=== PATIENT | female | born 1930 | race Caucasian/White ===

== ENCOUNTER → 2016-03-20 | Outpatient (CLI) | payer OTHER ==
[~2016-03-20] MED LIST: APIX1TAB3 PO; BUDE0.09 PO; CALC500C70 PO; ELQ25 PO; ESCI1TAB6 PO; FERR1TAB61 PO; FRS/40 PO; HYDR-5688 PO; LEVO75TA5 PO; LEVO88TA3 PO; LNX125 PO; LVQ750 PO; METO100T44 PO; METO50TA7 PO; OMEP20CA9 PO; ONDA4TAB46 PO; POTA-327 PO; POTA10CA28 PO
--- NOTE | 2016-03-20 15:46 | DIAGNOSTIC IMAGING REPORT ---
CHEST 2 VIEWS ROUTINE CLINICAL HISTORY: I48.0 Paroxysmal atrial [id number] Shortness of breathI5 COMPARISON STUDY: 03/14/2016 FINDINGS: The heart remains enlarged. There are suspected anterolateral dilatation of the descending thoracic aorta. There is resolving congestive failure. There are small residual pleural effusions. There is dense calcification mitral valve annulus. There are improving left basilar airspace opacities. There is been resolution of the right basilar airspace opacities. IMPRESSION: 1. Cardiomegaly 2. Resolving congestive failure with residual small pleural effusions 3. 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 Resolution of the previous described right basilar airspace opacities. Improving left basilar airspace opacities. Electronically signed by: Shiv Hickman M.D. 03/20/2016 3:44 PM
[2016-03-20 15:54] LABS: URINE APPEARANCE CLEAR (CLEAR); URINE BILIRUBIN NEG (NEG); URINE COLOR YELLOW; URINE EPITHELIAL CELL AUTO 0-5 /lpf (0-5); URINE NITRITE NEG (NEG); URINE PH 7.5 (4.5-7.5); URINE SPECIFIC GRAVITY 1.003 (1.000-1.030); UROBILINOGEN NEG (NEG); ZZUR CULT IF INDIC CLEAN CATCH NO
[2016-03-20 15:55] LABS: MANUAL MICROSCOPIC REQUIRED? NO; REVIEW REQ? NO
== END | disposition home or self-care (01) ==
LOC: C.RAD 14:55
PROVIDERS: ATTEND Internal Medicine Pulmonary Disease
DX: I48.0 Paroxysmal atrial fibrillation (principal); I50.9 Heart failure, unspecified; J44.9 Chronic obstructive pulmonary disease, unspecified; R06.02 Shortness of breath; R09.02 Hypoxemia

== ENCOUNTER → 2016-04-19 | Outpatient (CLI) | payer OTHER ==
[~2016-04-19] MED LIST changes: -METO100T44 PO; +METO1TAB69 PO
[2016-04-19 13:15] LABS: HEMATOCRIT 35.6 % (37-47); MEAN CELL VOLUME 95.7 fL (80-100); MEAN CORPUSCULAR HEMOGLOBIN 30.6 pg (25-34); MEAN PLATELET VOLUME 11.3 fL (7.4-10.4); PLATELET COUNT 237 K/uL (130-400); RED BLOOD COUNT 3.72 M/uL (4.2-5.4); WHITE BLOOD COUNT 13.03 K/uL (4.8-10.8)
[2016-04-19 13:21] LABS: BLOOD UREA NITROGEN 28 mg/dl (7-18); BUN/CREATININE RATIO 17.6 (10-20); CALCIUM 8.9 mg/dl (8.5-10.1); CARBON DIOXIDE 30 mmol/L (21-32); CHLORIDE 100 mmol/L (98-107); GLUCOSE 109 mg/dl (70-99); POTASSIUM 3.9 mmol/L (3.5-5.1); SODIUM 139 mmol/L (136-145)
== END | disposition home or self-care (01) ==
LOC: C.LAB 11:10
PROVIDERS: ATTEND Internal Medicine Cardiovascular Disease
DX: I50.9 Heart failure, unspecified (principal)

== ENCOUNTER → 2016-04-23 | Outpatient (CLI) | payer OTHER ==
--- NOTE | 2016-04-23 13:54 | DIAGNOSTIC IMAGING REPORT ---
CHEST 2 VIEWS ROUTINE CLINICAL HISTORY: Aortic stenosis, chronic cough, patient on amiodarone therapy COMPARISON STUDY: 03/20/2016 FINDINGS: The heart remains enlarged. There is aneurysmal dilatation of the descending thoracic aorta. Since the prior study, the patient developed bilateral pulmonary airspace opacities, consistent with a bilateral pneumonitis. There is blunting of the lateral costophrenic angle suggesting small effusions.[ There are multiple thoracic compression deformities similar to the prior study. IMPRESSION: 1. Cardiomegaly and stable aortic dilatation 2. Small bilateral pleural effusions 3. Interval development of bilateral pulmonary airspace opacities, consistent with a bilateral pneumonitis. Clinical and radiographic follow-up is recommended Electronically signed by: Shiv Hickman M.D. 04/23/2016 1:52 PM Dictated Date/Time: 04/23/2016 1:50 PM
== END | disposition home or self-care (01) ==
LOC: C.RAD 13:31
PROVIDERS: ATTEND Internal Medicine Cardiovascular Disease
DX: I35.0 Nonrheumatic aortic (valve) stenosis (principal); R05 Cough; Z79.899 Other long term (current) drug therapy

== ENCOUNTER → 2016-04-25 | Outpatient (CLI) | payer OTHER ==
--- NOTE | 2016-04-25 14:21 | DIAGNOSTIC IMAGING REPORT ---
BILATERAL LOWER EXTREMITY VENOUS DOPPLER CLINICAL HISTORY: Bilateral lower extremity pain and swelling. COMPARISON STUDY: No previous studies for comparison. TECHNIQUE: Sonography of the deep venous system of the bilateral lower extremities was performed. Compression and augmentation were evaluated. FINDINGS: The bilateral common femoral, superficial femoral and popliteal veins were compressible. Augmentation was normal. Flow was shown within the deep calf vessels. Note is made of a 3.9 x 2.2 x 1.1 cm right popliteal cyst. IMPRESSION: 1. No evidence of deep venous thrombus within the bilateral lower extremities. 2. 3.9 x 2.2 x 1.1 cm right popliteal cyst. Electronically signed by: Austyn Pierce M.D. 04/25/2016 2:19 PM Dictated Date/Time: 04/25/2016 2:18 PM
--- NOTE | 2016-04-25 14:21 | DIAGNOSTIC IMAGING REPORT ---
CHEST CT WITHOUT CONTRAST CT DOSE: 356.40 mGy.cm HISTORY: Pneumonia R05,R07.81,R06.02,R60.9 TECHNIQUE: Multiaxial CT images of the chest were performed without contrast. COMPARISON: 12/29/2015 FINDINGS: Interval progression of the patient's bilateral parenchymal infiltrative change. Bibasilar infiltrative changes described previously are generally stable. There is been interval development and/or progression of right as well as left pleural effusion. The parenchymal somewhat nodular-type changes in the right mid lung are less well-defined. There is progressive infiltrative change, however of the mid to upper lung regions bilaterally. There are no true consolidative changes. There is moderate right perihilar infiltrative change progressive. Heart remains enlarged. The thoracic aorta remains tortuous and ectatic. Esophagus is diminished in distention as compared to the prior study. There are findings of moderate mediastinal adenopathy slightly progressive from the prior exam. Aortopulmonary nodes currently measure up to 1.4 cm. Pretracheal and precarinal nodes measure up to 2.2 cm. Focal aneurysmal dilatation thoracic aorta is stable. IMPRESSION: 1. Progressive multifocal inflammatory changes throughout both hemithoraces. 2. Progressive bilateral pleural effusions. 3. Progressive mediastinal adenopathy. 4. Stable cardiac enlargement. 5. Stable aneurysmal dilatation thoracic aorta. 6. Improved distention of the esophagus 7. Possibility of an atypical inflammatory process and/or progressive aspiration is possible but less likely etiology. The appearance is again most likely consistent with that of a progressive inflammatory process. Electronically signed by: Tacos Denton M.D. 04/25/2016 2:19 PM Dictated Date/Time: 04/25/2016 2:12 PM
== END | disposition home or self-care (01) ==
LOC: C.ULTR 13:17
PROVIDERS: ATTEND Internal Medicine Critical Care Medicine
DX: I50.9 Heart failure, unspecified (principal); R93.8 Abnormal findings on diagnostic imaging of other specified body structures; R07.81 Pleurodynia; R05 Cough; R60.9 Edema, unspecified; R09.02 Hypoxemia; R06.02 Shortness of breath; M71.21 Synovial cyst of popliteal space [Baker], right knee; M25.579 Pain in unspecified ankle and joints of unspecified foot; J90 Pleural effusion, not elsewhere classified; R59.0 Localized enlarged lymph nodes; I71.2 Thoracic aortic aneurysm, without rupture

== ENCOUNTER → 2016-06-26 | Outpatient (CLI) | payer OTHER ==
[~2016-06-26] MED LIST changes: +METO100T44 PO; -METO1TAB69 PO
== END | disposition home or self-care (01) ==
LOC: C.LAB 12:27
PROVIDERS: ATTEND Physician Assistant
DX: I48.0 Paroxysmal atrial fibrillation (principal); Z51.81 Encounter for therapeutic drug level monitoring; Z79.899 Other long term (current) drug therapy

== ENCOUNTER → 2016-07-24 | Outpatient (CLI) | payer OTHER ==
--- NOTE | 2016-07-24 14:44 | DIAGNOSTIC IMAGING REPORT ---
CT OF THE CHEST WITHOUT IV CONTRAST CLINICAL HISTORY: Chronic cough. Hypoxia. Abnormal chest radiograph. COMPARISON STUDY: Chest radiograph April 23, [address] April 25, 2016. CT DOSE: 218.93 mGy.cm TECHNIQUE: Axial images of the chest were obtained without IV contrast. Images were reviewed in the axial, sagittal, and coronal planes. IV contrast was not administered for this examination. FINDINGS: Aneurysmal dilatation of the proximal descending thoracic aorta is similar and 2 exam of April 25, 2016, measuring 4.4 cm. Aneurysmal dilatation of the distal descending thoracic aorta, measuring 5.7 cm is also similar to prior exam. Abdominal aortic aneurysm is partially imaged on this exam but is similar to prior abdominal CT of May 31, 2015, measuring 3.6 x 3.6 cm. The heart is moderately enlarged. There is extensive coronary artery calcification and mitral annular calcification. There is no pericardial effusion. Small right and trace left pleural effusions have improved since exam of April 25, 2016. Multifocal groundglass and irregular nodular opacities throughout both lungs are present. Overall, the findings have improved since exam of April 25, 2016. When comparing to numerous prior chest CTs, these nodules wax and wane. There is no pneumothorax. There is no cavitation. Multiple mildly enlarged mediastinal lymph nodes have slightly decreased in size since exam of April 25, 2016. An index AP window lymph node measures 1.2 cm in short axis diameter and an index precarinal node measures 1.4 cm. There is extensive atherosclerotic plaque within the major vessels. There are numerous old thoracic spine compression fractures. IMPRESSION: 1. Extensive groundglass and irregular nodular densities throughout the lungs with overall improvement since prior exam of April 25, 2016. The waxing and waning appearance of these nodules suggests an infectious process (such as KENYON) or inflammatory process such as cryptogenic organizing pneumonia. 2. Small right and trace left pleural effusions which have improved since prior exam. Suspected superimposed mild pulmonary edema. 3. Mild mediastinal lymphadenopathy which is slightly improved since prior exam. 4. No significant change in aneurysmal dilatation of the thoracic and abdominal aorta. Electronically signed by: Austyn Pierce M.D. 07/24/2016 2:42 PM Dictated Date/Time: 07/24/2016 2:28 PM
== END | disposition home or self-care (01) ==
LOC: C.CTS 13:36
PROVIDERS: ATTEND Physician Assistant
DX: R93.8 Abnormal findings on diagnostic imaging of other specified body structures (principal); R05 Cough; R09.02 Hypoxemia; J44.9 Chronic obstructive pulmonary disease, unspecified

== ENCOUNTER → 2016-08-20 | Outpatient (CLI) | payer OTHER ==
[~2016-08-20] MED LIST changes: -METO100T44 PO; +METO1TAB69 PO
== END | disposition home or self-care (01) ==
LOC: C.LABSPEC 08:56
PROVIDERS: ATTEND Physician Assistant
DX: R05 Cough (principal)

== ENCOUNTER 2016-11-05 13:03 | Inpatient (IN) | payer OTHER ==
[~2016-11-05] VITALS: Ht 165.1 cm; Wt 43.6 kg
[~2016-11-05 13:03] MED LIST changes: -APIX1TAB3 PO; -ELQ25 PO; -LEVO75TA5 PO; -LNX125 PO; -LVQ750 PO; -METO1TAB69 PO; -OMEP20CA9 PO; -POTA10CA28 PO
[2016-11-05 13:05] VITALS: Ht 165.1 cm; Wt 43.6 kg
[2016-11-05] MEDS ORDERED: LEVO75TA5 PO (13:22)
[2016-11-05] MEDS ORDERED: METO1TAB69 PO (13:23)
[2016-11-05] MEDS ORDERED: LNX125 PO (13:25)
[2016-11-05] MEDS ORDERED: POTA10CA28 PO (13:26)
[2016-11-05] MEDS ORDERED: APIX1TAB3 PO (14:12)
[2016-11-05 14:17] LABS: BASO % 0.1 %; BASO ABS # 0.01 K/uL (0-0.2); COMPLETE YES; EOS % 0.2 %; HEMATOCRIT 39.1 % (37-47); IG% 0.1 %; LYMPH % 9.4 %; LYMPH ABS # 0.85 K/uL (1.2-3.4); MEAN CELL VOLUME 92.7 fL (80-100); MEAN CORPUSCULAR HEMOGLOBIN 30.3 pg (25-34); MEAN CORPUSCULAR HGB CONC 32.7 g/dl (32-36); MEAN PLATELET VOLUME 10.2 fL (7.4-10.4); MONO % 4.7 %; NEUT % 85.5 %; PLATELET COUNT 173 K/uL (130-400); RED BLOOD COUNT 4.22 M/uL (4.2-5.4); WHITE BLOOD COUNT 9.09 K/uL (4.8-10.8)
[2016-11-05 14:35] LABS: BUN/CREATININE RATIO 12.6 (10-20); CALCIUM 8.4 mg/dl (8.5-10.1); CREATININE 1.4 mg/dl (0.60-1.20); POTASSIUM 3.8 mmol/L (3.5-5.1)
[2016-11-05 14:37] LABS: ALB/GLOB RATIO 0.7 (0.9-2)
[2016-11-05] MEDS ORDERED: SODIUM CHLORIDE 0.9% 1000ML 1,000 ML IV STA (14:50)
--- NOTE | 2016-11-05 14:56 | EMERGENCY ROOM VISIT NOTE ---
History Report prepared by Kyrie: Latia Nicholas Under the Supervision of: Dr. Christie Jim D.O. First contact with patient: 14:33 Chief Complaint: FALL Stated Complaint: FAILING HEALTH History of Present Illness The patient is a 86 year old female who presents to the Emergency Room with complaints of generalized weakness beginning 4 days ago. Per her granddaughter, the patient has been vomiting and had a fever at 101. She has also been confused and fatigued. The patient also reports having intermittent pressure in her head posteriorly and neck pain. She states that she almost fell yesterday, but was caught by family and did not hit her head. The patient states that she has been eating and drinking normally, and that her bowel movements have been normal. Her granddaughter states that she has a history of diarrhea over the last 6 years, and states that her last colonoscopy was when her diarrhea problems started. She denies having bladder problems. She denies being around anyone sick when her symptoms started and also denies recent travel. The patient is on blood thinners for an irregular heart rate for at least 7 years. Pt denies change in vision, chest pain, shortness of breath, diarrhea, pain with urination, and melena. The patient's lens hardener is Dr. King. Review of EMR reveals similar presentation in february 2016, EF 55% at that time but severe . Pt started on rate control for rapid a.fib. Pt has been anticoagulated since. Source of History: patient, family (granddaughter) Onset: 4 days ago Position: other (global) Quality: other (weakness ) Associated Symptoms: + fevers, + headache (pressure in head ), + neck pain ( stiff), + vomiting, + fatigue, No chest pain, No SOB, No melena, No diarrhea, No urinary symptoms Review of Systems See HPI for pertinent positives & negatives. A total of 10 systems reviewed and were otherwise negative. Past Medical & Surgical Medical Problems: (1) Abdom Aortic Aneurysm (2) Accelerated hypertension (3) Anticoagulant long-term use (4) Anticoagulated on Coumadin (5) Aortic stenosis (6) Atrial fibrillation with RVR (7) Atrial fibrillation with RVR (8) Chest pain (9) CHF (congestive heart failure) (10) chf exac, possible PNA (11) Congestive heart failure (12) Facial trauma (13) Heart valve defect (14) History of aortic stenosis (15) Hypertension Nos (16) Hypothyroidism Nos (17) Hypoxia (18) Personal History Of Colonic Polyps (19) Pneumonia (20) Respiratory failure with hypoxia Family History Cancer Heart disease Hypertension Social History Smoking Status: Never Smoker Alcohol Use: none Drug Use: none Marital Status: Housing Status: lives alone Occupation Status: retired Current/Historical Medications Scheduled Apixaban (Eliquis), 5 MG PO BID Budesonide (Budesonide), 9 MG PO QAM Calcium/Vitamin D (Os-Daron 500 Plus D), 1 TAB PO DAILY Digoxin (Digoxin), 0.125 MG PO Q2D Escitalopram Oxalate (Lexapro), 5 MG PO DAILY Furosemide (Lasix), 80 MG PO DAILY Levothyroxine Sodium (Levothyroxine Sodium), 1 TAB PO DAILY Metoprolol Succ (Toprol Xl) (Toprol-Xl ), 100 MG PO DAILY Omeprazole (Prilosec), 20 MG PO DAILY Potassium Chloride (Micro-K Ext Rel), 20 MEQ PO DAILY Allergies Coded Allergies: Sulfa Antibiotics (Verified Allergy, Unknown, ., 11/05/16) Codeine (Verified Adverse Reaction, Unknown, GI UPSET, 11/05/16) Physical Exam Vital Signs Date Time Temp Pulse Resp B/P (MAP) Pulse Ox O2 Delivery O2 Flow Rate FiO2 11/05/16 18:20 116 23 146/91 91 Nasal Cannula 2.0 11/05/16 17:05 108 11/05/16 17:00 91 22 129/100 98 Nasal Cannula 2.0 11/05/16 16:40 96 23 128/73 97 Room Air 11/05/16 14:45 112 18 135/103 100 Nasal Cannula 2.0 11/05/16 14:22 Nasal Cannula 2.0 11/05/16 13:45 115 11/05/16 13:05 37.5 121 18 101/70 93 Room Air Physical Exam GENERAL: alert, frail, elderly, well nourished, no distress, non-toxic EYE EXAM: normal conjunctiva, PERRL and EOM's grossly intact OROPHARYNX: no exudate, no erythema, lips, buccal mucosa, and tongue normal and mucous membranes are mildly dry NECK: supple, no nuchal rigidity, no adenopathy, non-tender LUNGS: Diminished lung sounds, fine by basilar rales, no wheezes, no rhonchi. Normal chest wall mechanics HEART: irregular beat, tachycardic, systolic injection murmur ABDOMEN: abdomen soft, non-tender, normo-active bowel sounds, no masses, no rebound or guarding. BACK: Back is symmetrical on inspection and there is no deformity, no midline tenderness, no CVA tenderness. SKIN: no rashes and no bruising UPPER EXTREMITIES: upper extremities are grossly normal. LOWER EXTREMITIES: No pitting edema. Normal pulses. Multiples areas of ecchymosis in various stages of healing. NEURO EXAM: Normal sensorium, cranial nerves II-XII grossly intact, normal speech, no gross weakness of arms, no gross weakness of legs. Medical Decision & Procedures ER Provider Diagnostic Interpretation: Radiology results have been interpreted by the radiologist and reviewed by me. CT SCAN OF THE BRAIN WITHOUT IV CONTRAST CLINICAL HISTORY: Change in mental status. COMPARISON STUDY: CT of the brain dated 05/31/2015. TECHNIQUE: Unenhanced axial CT scan of the brain is performed from the vertex to the skull base. CT DOSE: 614.27 mGy.cm FINDINGS: Brain parenchyma: There are age-related involutional changes noting moderate patchy subcortical and periventricular microangiopathic change. There is no hemorrhage, mass effect, or evidence of acute territorial ischemia by CT criteria. Scattered parenchymal calcifications are similar to previous. Vega-white matter is preserved. No extra-axial fluid collection is seen. Ventricles, sulci, cisterns: Prominent secondary to involutional change. Intracranial vasculature: There is atherosclerotic calcification of the cavernous carotid and vertebral arteries. Calvarium: Unremarkable. Sinuses and mastoids: The visualized paranasal sinuses are clear. The mastoid air cells are well pneumatized. Orbits: The bony orbits are grossly intact. There are bilateral ocular lens implants. IMPRESSION: There is no hemorrhage, mass effect, or evidence of acute territorial ischemia by CT criteria. Electronically signed by: Rickey Redmond M.D. 11/05/2016 3:29 PM Dictated Date/Time: 11/05/2016 3:[address] SCAN OF THE ABDOMEN AND PELVIS WITH IV CONTRAST CLINICAL HISTORY: Nausea and vomiting. Diarrhea. COMPARISON STUDY: Abdominal CT dated 05/31/2015. Chest CT dated 07/24/2016. TECHNIQUE: Following the IV administration of 93 cc of Optiray 320, CT scan of the abdomen and pelvis is performed from the lung bases to the proximal femora. Images are reviewed in the axial, sagittal, and coronal planes. IV contrast was administered without complication. Automated dose control exposure was utilized. A dose lowering technique was utilized adhering to the principles of ALARA. CT DOSE: 231.35 mGy.cm FINDINGS: Lung bases: The heart is enlarged and there is a small to moderate pericardial effusion. The coronary arteries and mitral annulus are densely calcified. There are trace pleural effusions. Intralobular septal thickening is suggested at the lung bases there is nonspecific interstitial thickening and nodularity. No lobar consolidation is seen. Liver: The contrast-enhanced liver is normal in size, contour, and attenuation. There is no intrahepatic biliary ductal dilatation. The hepatic veins and portal veins are patent. Gallbladder: Unremarkable. Spleen: Normal in size and attenuation. Pancreas: The pancreas is atrophic. A 12 mm cystic focus in the pancreatic body on image #124 likely represents a small sidebranch IPMN. Adrenal glands: Unremarkable. Kidneys: The contrast enhanced kidneys are atrophic and without hydronephrosis. The kidneys enhance symmetrically. Abdominal vasculature: There is advanced atherosclerotic calcification of the abdominal aorta. There is an aneurysm of the distal descending thoracic/proximal abdominal aorta at the esophageal hiatus. This measures 4.0 x 5.2 cm. There is diffuse interstitial dilatation of the abdominal aorta. This is greatest in the distal abdominal aorta where it measures 4.7 x 4.4 cm. The abdominal aorta is widely patent. 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 There is advanced atherosclerotic calcification of the iliac arteries which are patent bilaterally. 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 Additional subcentimeter splenic artery aneurysms are suggested. Bowel: The small bowel and colon are normal in course and caliber. There is mild to moderate colonic fecal retention. The appendix is not identified. Peritoneum: There is no intraperitoneal free air or abdominal ascites. Lymphadenopathy: None. Pelvic viscera: The bladder, uterus, and adnexa are normal as visualized. Skeletal structures: The skeletal structures are osteopenic. There is moderate lumbosacral spondylosis and scoliosis. Compression deformities are seen involving T11, L3, and L5. These have been seen on prior examinations. Grade 1 anterolisthesis is noted at L4-L5. No lytic or blastic lesions are seen. There are chronic left pubic ring fractures. IMPRESSION: 1. No acute infectious or inflammatory findings are identified in the abdomen or pelvis. 2. No bowel obstruction is seen. 3. There is advanced atherosclerotic calcification of the abdominal aorta with diffuse aneurysmal dilatation of the distal descending thoracic and abdominal aorta as detailed above. This measures up to 5.2 cm. 4. 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 5. Cardiomegaly and pericardial effusion. 6. Trace pleural effusions. 7. Additional findings as above. Electronically signed by: Rickey Redmond M.D. 11/05/2016 3:45 PM Dictated Date/Time: 11/05/2016 3:31 PM CHEST ONE VIEW PORTABLE CLINICAL HISTORY: Elevated bnp. COMPARISON STUDY: Chest CT July 24, 2016. FINDINGS: No pneumothorax or pleural effusion is present. Moderate cardiomegaly is noted with extensive mitral annular calcification. Mild interstitial pulmonary edema is present. Note is made of a 5.5 cm nodular opacity within the right mid to upper lung. Mild left midlung opacities are present. IMPRESSION: 1. Mild pulmonary edema. 2. 5.5 cm right mid lung nodular opacity and patchy left midlung opacity. The findings could reflect a superimposed infectious process or asymmetric pulmonary edema. Radiographic follow-up to ensure resolution is recommended. Electronically signed by: Austyn Pierce M.D. 11/05/2016 6:17 PM Dictated Date/Time: 11/05/2016 6:14 PM Laboratory Results 11/05/16 13:50 Red Blood Count 4.22, Mean Corpuscular Volume 92.7, Mean Corpuscular Hemoglobin 30.3, Mean Corpuscular Hemoglobin Concent 32.7, Mean Platelet Volume 10.2, Neutrophils (%) (Auto) 85.5, Lymphocytes (%) (Auto) 9.4, Monocytes (%) (Auto) 4.7, Eosinophils (%) (Auto) 0.2, Basophils (%) (Auto) 0.1, Neutrophils # (Auto) 7.77, Lymphocytes # (Auto) 0.85, Monocytes # (Auto) 0.43, Eosinophils # (Auto) 0.02, Basophils # (Auto) 0.01 11/05/16 13:50 Test 11/05/16 13:50 11/05/16 17:12 White Blood Count 9.09 K/uL (4.8-10.8) Red Blood Count 4.22 M/uL (4.2-5.4) Hemoglobin 12.8 g/dL (12.0-16.0) Hematocrit 39.1 % (37-47) Mean Corpuscular Volume 92.7 fL (80-100) Mean Corpuscular Hemoglobin 30.3 pg (25-34) Mean Corpuscular Hemoglobin Concent 32.7 g/dl (32-36) Platelet Count 173 K/uL (130-400) Mean Platelet Volume 10.2 fL (7.4-10.4) Neutrophils (%) (Auto) 85.5 % Lymphocytes (%) (Auto) 9.4 % Monocytes (%) (Auto) 4.7 % Eosinophils (%) (Auto) 0.2 % Basophils (%) (Auto) 0.1 % Neutrophils # (Auto) 7.77 K/uL (1.4-6.5) Lymphocytes # (Auto) 0.85 K/uL (1.2-3.4) Monocytes # (Auto) 0.43 K/uL (0.11-0.59) Eosinophils # (Auto) 0.02 K/uL (0-0.5) Basophils # (Auto) 0.01 K/uL (0-0.2) RDW Standard Deviation 49.8 fL (36.4-46.3) RDW Coefficient of Variation 14.6 % (11.5-14.5) Immature Granulocyte % (Auto) 0.1 % Immature Granulocyte # (Auto) 0.01 K/uL (0.00-0.02) Anion Gap 6.0 mmol/L (3-11) Est Creatinine Clear Calc Drug Dose 21.8 ml/min Estimated GFR () 39.6 Estimated GFR (Non- 34.2 BUN/Creatinine Ratio 12.6 (10-20) Calcium Level 8.4 mg/dl (8.5-10.1) Total Bilirubin 1.5 mg/dl (0.2-1) Aspartate Amino Transf (AST/SGOT) 14 U/L (15-37) Alanine Aminotransferase (ALT/SGPT) 14 U/L (12-78) Alkaline Phosphatase 81 U/L (45-117) Troponin I 0.024 ng/ml (0-0.045) C-Reactive Protein 9.03 mg/dl (0-0.29) Pro-B-Type Natriuretic Peptide 96421 pg/ml (0-1800) Total Protein 7.2 gm/dl (6.4-8.2) Albumin 3.0 gm/dl (3.4-5.0) Globulin 4.2 gm/dl (2.5-4.0) Albumin/Globulin Ratio 0.7 (0.9-2) Procalcitonin 0.21 ng/ml (0-0.5) Digoxin Level 0.7 ng/ml (0.8-2.0) Bedside Lactic Acid Venous 0.78 mmol/L (0.90-1.70) Laboratory results per my review. Medications Administered Medications (Trade) Dose Ordered Sig/Tessa Route Start Time Stop Time Status Last Admin Dose Admin Sodium Chloride 1,000 ml @ 125 mls/hr Q8H STAT IV 11/05/16 14:50 11/05/16 17:03 DC 11/05/16 14:50 125 MLS/HR Furosemide (Lasix Inj) 80 mg NOW STAT IV 11/05/16 17:02 11/05/16 17:03 DC 11/05/16 17:28 80 MG ECG Indication: weakness Rate (beats per minute): 98 Rhythm: atrial fibrillation Findings: no acute ischemic change, left axis deviation, other (normal QRS and QTC, baseline artifact noted) Comparison ECG Date: inverted T waves in Lead I and aVL, unchanged from prior ED Course 1438: The patient was evaluated in room A11B. A complete history and physical exam was performed. 1450: Ordered Sodium Chloride 1,000 ml @ 125 mls.hr IV. 1701: I updated the patient and her granddaughter. They both agree to admission. I added lactic acid to her order. Her granddaughter states that the aneurysm is old. 170: Ordered Lasix Inj 80 mg IV. 1850: Upon reevaluation, the patient is resting. I discussed the findings and the treatment plan with the patient. She expresses agreement and understanding. I spoke with Dr. Ivy of the [facility]. She will be evaluated for further management. Medical Decision Differential diagnosis: Etiologies such as metabolic, infection, hypo/hyperglycemia, electrolyte abnormalities, cardiac sources, intracerebral event, toxicologic, neurologic, as well as others were entertained. Pt's aaa/vascular stenosis likely chronic given age/hx/labs and description on CT. Elevated BNP, no fever/leukocytosis more likely related to volume overload given cardiac hx. No syncope. Per old records and granddaughter at bedside, pt has previously refused any surgical intervention for her as well has refusing a colonoscopy, and is listed as a DNR. Doubt pneumonia despite mildly patchy appearance on cxr. Pt has been unable to provide urine specimen in the ER and nurses were unable to perform bedside straight cath. VS stable. Pt given dose of lasix. Not hypoxic. No other acute GI pathology. Pt's mild RVR here likely from not taking all her usual meds today. Pt with variability of her rate, but asymptomatic. Medication Reconcilliation Current Medication List: was personally reviewed by me Blood Pressure Screening Patient's blood pressure: Elevated blood pressure Blood pressure disposition: Referred to PCP Consults Time Called: 1800 Consulting Physician: Dr. Edgar Returned Call: [phone] I reviewed the patient's case with Dr. Ivy. He will evaluate the patient for further management. Impression Primary Impression: Generalized weakness Additional Impressions: CHF (congestive heart failure) Atrial fibrillation Scribe Attestation The scribe's documentation has been prepared under my direction and personally reviewed by me in its entirety. I confirm that the note above accurately reflects all work, treatment, procedures, and medical decision making performed by me. Departure Information Dispostion Being Evaluated By Hospitalist Referrals Tyler Zimmerman PA-C (PCP) Patient Instructions My [facility] Problem Qualifiers Additional Impressions: CHF (congestive heart failure) Congestive heart failure type: combined Congestive heart failure chronicity: acute on chronic Qualified Codes: I50.43 - Acute on chronic combined systolic (congestive) and diastolic (congestive) heart failure Atrial fibrillation Atrial fibrillation type: chronic Qualified Codes: I48.2 - Chronic atrial fibrillation
[2016-11-05] MEDS ORDERED: OPTIRAY 320 IV PRN (15:15)
--- NOTE | 2016-11-05 15:33 | DIAGNOSTIC IMAGING REPORT ---
CT SCAN OF THE BRAIN WITHOUT IV CONTRAST CLINICAL HISTORY: Change in mental status. COMPARISON STUDY: CT of the brain dated 05/31/2015. TECHNIQUE: Unenhanced axial CT scan of the brain is performed from the vertex to the skull base. CT DOSE: 614.27 mGy.cm FINDINGS: Brain parenchyma: There are age-related involutional changes noting moderate patchy subcortical and periventricular microangiopathic change. There is no hemorrhage, mass effect, or evidence of acute territorial ischemia by CT criteria. Scattered parenchymal calcifications are similar to previous. Vega-white matter is preserved. No extra-axial fluid collection is seen. Ventricles, sulci, cisterns: Prominent secondary to involutional change. Intracranial vasculature: There is atherosclerotic calcification of the cavernous carotid and vertebral arteries. Calvarium: Unremarkable. Sinuses and mastoids: The visualized paranasal sinuses are clear. The mastoid air cells are well pneumatized. Orbits: The bony orbits are grossly intact. There are bilateral ocular lens implants. IMPRESSION: There is no hemorrhage, mass effect, or evidence of acute territorial ischemia by CT criteria. Electronically signed by: Rickey Redmond M.D. 11/05/2016 3:29 PM Dictated Date/Time: 11/05/2016 3:26 PM
--- NOTE | 2016-11-05 15:46 | DIAGNOSTIC IMAGING REPORT ---
CT SCAN OF THE ABDOMEN AND PELVIS WITH IV CONTRAST CLINICAL HISTORY: Nausea and vomiting. Diarrhea. COMPARISON STUDY: Abdominal CT dated 05/31/2015. Chest CT dated 07/24/2016. TECHNIQUE: Following the IV administration of 93 cc of Optiray 320, CT scan of the abdomen and pelvis is performed from the lung bases to the proximal femora. Images are reviewed in the axial, sagittal, and coronal planes. IV contrast was administered without complication. Automated dose control exposure was utilized. A dose lowering technique was utilized adhering to the principles of ALARA. CT DOSE: 231.35 mGy.cm FINDINGS: Lung bases: The heart is enlarged and there is a small to moderate pericardial effusion. The coronary arteries and mitral annulus are densely calcified. There are trace pleural effusions. Intralobular septal thickening is suggested at the lung bases there is nonspecific interstitial thickening and nodularity. No lobar consolidation is seen. Liver: The contrast-enhanced liver is normal in size, contour, and attenuation. There is no intrahepatic biliary ductal dilatation. The hepatic veins and portal veins are patent. Gallbladder: Unremarkable. Spleen: Normal in size and attenuation. Pancreas: The pancreas is atrophic. A 12 mm cystic focus in the pancreatic body on image #124 likely represents a small sidebranch IPMN. Adrenal glands: Unremarkable. Kidneys: The contrast enhanced kidneys are atrophic and without hydronephrosis. The kidneys enhance symmetrically. Abdominal vasculature: There is advanced atherosclerotic calcification of the abdominal aorta. There is an aneurysm of the distal descending thoracic/proximal abdominal aorta at the esophageal hiatus. This measures 4.0 x 5.2 cm. There is diffuse interstitial dilatation of the abdominal aorta. This is greatest in the distal abdominal aorta where it measures 4.7 x 4.4 cm. The abdominal aorta is widely patent. 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 There is advanced atherosclerotic calcification of the iliac arteries which are patent bilaterally. 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 Additional subcentimeter splenic artery aneurysms are suggested. Bowel: The small bowel and colon are normal in course and caliber. There is mild to moderate colonic fecal retention. The appendix is not identified. Peritoneum: There is no intraperitoneal free air or abdominal ascites. Lymphadenopathy: None. Pelvic viscera: The bladder, uterus, and adnexa are normal as visualized. Skeletal structures: The skeletal structures are osteopenic. There is moderate lumbosacral spondylosis and scoliosis. Compression deformities are seen involving T11, L3, and L5. These have been seen on prior examinations. Grade 1 anterolisthesis is noted at L4-L5. No lytic or blastic lesions are seen. There are chronic left pubic ring fractures. IMPRESSION: 1. No acute infectious or inflammatory findings are identified in the abdomen or pelvis. 2. No bowel obstruction is seen. 3. There is advanced atherosclerotic calcification of the abdominal aorta with diffuse aneurysmal dilatation of the distal descending thoracic and abdominal aorta as detailed above. This measures up to 5.2 cm. 4. 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 5. Cardiomegaly and pericardial effusion. 6. Trace pleural effusions. 7. Additional findings as above. Electronically signed by: Rickey Redmond M.D. 11/05/2016 3:45 PM Dictated Date/Time: 11/05/2016 3:31 PM
[2016-11-05] MEDS ORDERED: FUROSEMIDE 40 MG/4 ML VIAL IV STA (17:02)
[2016-11-05] MEDS ORDERED: FUROSEMIDE 40 MG/4 ML VIAL ONE ×2 (17:24→17:29)
--- NOTE | 2016-11-05 18:19 | DIAGNOSTIC IMAGING REPORT ---
CHEST ONE VIEW PORTABLE CLINICAL HISTORY: Elevated bnp. COMPARISON STUDY: Chest CT July 24, 2016. FINDINGS: No pneumothorax or pleural effusion is present. Moderate cardiomegaly is noted with extensive mitral annular calcification. Mild interstitial pulmonary edema is present. Note is made of a 5.5 cm nodular opacity within the right mid to upper lung. Mild left midlung opacities are present. IMPRESSION: 1. Mild pulmonary edema. 2. 5.5 cm right mid lung nodular opacity and patchy left midlung opacity. The findings could reflect a superimposed infectious process or asymmetric pulmonary edema. Radiographic follow-up to ensure resolution is recommended. Electronically signed by: Austyn Pierce M.D. 11/05/2016 6:17 PM Dictated Date/Time: 11/05/2016 6:14 PM
[2016-11-05] MEDS ORDERED: ONDANSETRON INJ 2 MG/ML 2 ML VIAL IV PRN (19:15)
[2016-11-05] MEDS ORDERED: ACETAMINOPHEN 325 MG TAB PO PRN (19:15)
[2016-11-05] MEDS ORDERED: POLYETHYLENE (MIRALAX) 17 GM PACK PO PRN ×2 (19:15→20:00)
[2016-11-05] MEDS ORDERED: MAGNESIUM HYDROXIDE SUSP 30 ML UDC PO PRN (19:15)
[2016-11-05] MEDS ORDERED: ALUMINUM/MAGNESIUM/SIMETH (MAALOX MAX) 30 ML UDC PO PRN (19:15)
[2016-11-05] MEDS ORDERED: FUROSEMIDE INJ 40 MG in SYRINGE 0 ML IV ONE (19:15)
--- NOTE | 2016-11-05 19:42 | History and Physical ---
History & Physical Date of Service Nov 05, 2016. History & Physical ADMIT [id number]
[2016-11-05] MEDS ORDERED: DIGOXIN 0.125 MG TAB PO STA (20:06)
[2016-11-05 20:26] VITALS: BP 155/129; PULSE 119; TEMP 36.9; O2SAT 98; BMI 16.6
[2016-11-05 20:55] LABS: URINE APPEARANCE CLEAR (CLEAR); URINE BILIRUBIN NEG (NEG); URINE COLOR YELLOW; URINE NITRITE NEG (NEG); URINE PH 7.5 (4.5-7.5); URINE SPECIFIC GRAVITY 1.021 (1.000-1.030); UROBILINOGEN NEG (NEG); ZZUR CULT IF INDIC CLEAN CATCH NO
[2016-11-05 20:57] LABS: MANUAL MICROSCOPIC REQUIRED? NO; REVIEW REQ? NO
--- NOTE | 2016-11-05 21:55 | Progress Note ---
Progress Note Date of Service Nov 05, 2016. Progress Note amadou faustin present - revisited HPI as per dictated H&P but: abrupt worsening around the end of last week, before that was much more functional fevers friday ~101, friday ~100.8 nausea/vomiting through this AM also reports had esophageal stricture and ?H Pylori last year febrile illness - given situation most likely viral, obviously follow for s/s bacterial (pneumonia given CXR, pyelo seems unlikely but could cause n/v, tick borne seems unlikely other than in endemic area) --> serial exams, serial labs, ongoing observation, all in agreement to hold on empiric abx for now
[2016-11-05] MEDS ORDERED: METOPROLOL TARTRATE 50 MG TAB PO STA (22:00)
[2016-11-05] MEDS: APIXABAN 2.5 MG TAB PO SCH (22:13)
[2016-11-05] MEDS ORDERED: OMEP20CA9 PO (22:15)
--- NOTE | 2016-11-05 22:22 | HISTORY & PHYSICAL EXAMINATION ---
DATE OF ADMISSION: 11/05/2016 CHIEF COMPLAINT: General weakness. HISTORY OF PRESENT ILLNESS: History is obtained from the patient and the ER. Unfortunately, her granddaughter who apparently has been living with her to help take care of her, also provided history to the ER as the patient does seem to be very mildly, but noticeably a little confused but unfortunately the granddaughter has left by the time I am there and while I try to call her, it goes to voicemail and I have not been able to hear back yet; however, it seems like she had been slowly declining over the last several days to a week. Predominantly she notes to me that she has just felt very, very tired, that she would go to sleep whenever she wakes up. She still feels tired like she wants to sleep again, just generally weaker than usual and that one time a couple of days ago, she went to get up and then started to fall and her son who was nearby was able to catch her and lower to the ground, so she did not have any significant trauma. She would note that she feels a little bit just bumped and bruised from that, as even though he was able to set her down fairly gently, she still notes that she did fall. She denies any shortness of breath to me, seems to deny orthopnea. Denies feeling feverish to me but the granddaughter had noted to Dr. Jim that she was vomiting and had a fever of 101. It is unclear exactly when this was because to me, she notes she has been eating and drinking fine, has no vomiting and does not remember the fever, but again she has been a bit confused and I am unable to reach the granddaughter at this time. She denies diarrhea that is new but does note that she has had diarrhea ongoing and she relates it to a medication between the ER and the granddaughter. They note that the diarrhea has been going on for about the last 6 years since she has had a colonoscopy at that point in time. REVIEW OF SYSTEMS: Negative for chills or sweats. Positive for fevers based on the granddaughter, negative per the patient. Review of systems is otherwise negative except for as above, as best can be ascertained. PAST MEDICAL HISTORY: Includes prior amiodarone pulmonary toxicity, anemia, abdominal and thoracic aortic aneurysms, anxiety, critical aortic stenosis, chronic systolic and diastolic combined CHF, depression with anxiety, diarrhea, dyslipidemia, dysphagia, hypertension, hypothyroidism, mitral regurg, nocturnal hypoxia, chronic bronchitis, renal insufficiency and apparent osteoporosis with a wedge fracture of T8. HOME MEDICATIONS: Entocort 3 mg daily, calcium plus D 600/400 daily, digoxin 125 mcg every other day, Eliquis 2.5 mg b.i.d., Lexapro 5 mg daily, Lasix 80 mg in the morning and 40 in the afternoon, unless her weight is at baseline, in which case she decreases it to 40 b.i.d., iron 142 mg daily, Synthroid 75 mcg daily, metoprolol ER 100 mg daily, Prilosec 20 mg daily, potassium 10 mEq 2-3 tabs daily with her Lasix. PAST SURGICAL HISTORY: EGD, colonoscopy, otherwise none of note. FAMILY HISTORY: Coronary artery disease and apparently pancreatic cancer. SOCIAL HISTORY: She has never smoked. She is retired and . She lives at home, but apparently has very good family support. Her granddaughter according to the ER lives with her multimedia assistant. According to her, she notes the granddaughter is just living with her temporarily. Again right now, I am not able to get ahold of the granddaughter to confirm all of the details. ALLERGIES: SHE IS ALLERGIC TO CODEINE AND SULFA. Her last echocardiogram in late February 2016 shows normal LV size and systolic function, EF of 60-65%, no regional wall motion abnormalities, severe hypertrophy of anteroseptal and otherwise moderate left concentric LVH, severe to critical aortic stenosis, mild mitral regurg, maybe moderate because it is difficult to visualize due to severe mitral annular calcification and trace to small pericardial effusion. PHYSICAL EXAMINATION: VITAL SIGNS: Temperature 37.5, pulse 121, respiratory rate 18, blood pressure 101/70, 93% on room air and then she is 98% on 2 liters. GENERAL: She is awake, alert, technically oriented x3, although she does seem to be a little confused. Certainly her story versus the story that the granddaughter gave to the ER do have some incongruities. She remembered that yesterday was her birthday, but said she turned 81, not 86, but again she does know where she is, what year it is, and does seem to have firm grasp of a lot of details. She is in no acute distress. Appears fatigued. HEENT: Normocephalic, atraumatic. Mucous membranes moist. CARDIOVASCULAR: Irregularly irregular with a 3/6 systolic murmur, actually best at the left lower sternal border, but otherwise most consistent with the harsh quality of aortic stenosis. LUNGS: Show bibasilar rales, no other rhonchi or wheezes. Good effort. No accessory muscle use. ABDOMEN: Soft, nondistended, nontender, no masses or organomegaly. EXTREMITIES: Without cyanosis, clubbing or edema. No calf tenderness. SKIN: Shows diffuse scattered bruising and ecchymoses. No notable skin tears or open lesions to my review. No pallor or icterus. NEUROLOGIC: Shows cranial nerves II-XII to be grossly intact. Gross motor and sensory are intact. MUSCULOSKELETAL: Shows normal hip alignment and mobility. She is slightly stiff to internal rotation of the right hip, but it is not painful and certainly not restricted in any significant way. MENTAL STATE: Shows what seems to be fair recent and remote recall. Normal mood and affect. Fair judgment and insight, mostly due to what appears to be a little bit of difficult immediate recall. LABS AND DIAGNOSTICS: EKG shows AFib at 98, although her heart rate has predominantly been faster than that. Q's in 2 and the aVF and a little bit of late transition anteroseptally. Head CT shows moderate patchy subcortical and periventricular microangiopathic change. No hemorrhage, mass effect, or evidence of acute territorial ischemia by CT criteria. Scattered parenchymal calcification, similar to previous, mcdowell-white matter preserved. No extraaxial fluid collections. There is atherosclerotic calcification of cavernous carotid and vertebral arteries. grossly intact, bilateral ocular lens implants. Chest x-ray shows no pneumothorax or effusion, moderate cardiomegaly noted with extensive mitral annular calcification, mild interstitial pulmonary edema present. Note is made of 5.5 cm nodular opacity within the right mid to upper lung and mild left mid lung opacities are present. Radiology's conclusion on this is that they could reflect a superimposed infectious process or asymmetric pulmonary edema. Radiographic followup resolution is recommended. CT abdomen and pelvis has multiple findings with the lung bases showing the heart enlarged, small to moderate pericardial effusion, coronary arteries and mitral annulus densely calcified, trace pleural effusions, interlobular septal thickening suggest at the bases, nonspecific interstitial thickening and lung nodularity. No lobar consolidation seen. A contrast enhanced liver is normal in size, contour, and attenuation. No intrahepatic ductal dilation. Hepatic veins and portal veins are patent. Gallbladder is unremarkable. Spleen is normal in size and attenuation. Pancreas is atrophic with a 12 mm cystic focus in the pancreatic body, representing probably a small side branch IPMN. Adrenal glands are unremarkable. Kidneys are atrophic and without hydronephrosis but they enhance symmetrically. 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 The appendix is not identified. No intraperitoneal free air or abdominal ascites. No adenopathy. Bladder, uterus and adnexa normal as visualized. Skeletal structures are osteopenic. Moderate lumbosacral spondylosis and scoliosis. Compression deformities are seen involving T11, L3 and L5, seen on prior exam. Grade 1 anterolisthesis noted L4-L5. No lytic or blastic lesions are seen. There are chronic left pubic ring fractures. Her labs show a CBC with a white count of 9.09, hemoglobin 12.8 with 85.5% neutrophils, platelets of 173. Sodium 133, potassium 3.8, chloride 98, CO2 29, BUN 18, creatinine 1.4, which is actually a little bit better than her baseline, calcium of 8.4, glucose 119, total bilirubin 1.5 with an AST of 14, ALT of 14, alk phos 81, total protein 7.2, albumin 3. Troponin of 0.024. BNP of 16,336. Lactate 0.78. Procalcitonin 0.21. Digoxin of 0.7. ASSESSMENT AND PLAN: 1. Weakness and fatigue, certainly the differential for this seems to be very wide. She does appear to have a decompensation of congestive heart failure, which may be the whole story. However, given the difficulty of taking a history directly from her and findings that seem to be inconsistent between her history and her granddaughter's history, it would be nice to be able to get more of a complete story and certainly hopefully we will be able to get in touch with the granddaughter in this regard. However, given all of this, infectious etiologies as well as other etiologies need to be entertained. At this point in time we will initiate management with managing the CHF that appears to be very real and very prominent and close observation, serial exams and serial lab work to evaluate for other possible etiologies. I have checked the procalcitonin. We will be checking a CRP to evaluate for severity of inflammation, particularly given the abnormal chest x-ray as well as any role for empiric antibiotics but at this point, certainly none appear to be warranted. 2. Acute exacerbation of chronic combined congestive heart failure, predominantly due to her severe to critical aortic stenosis. She does appear to be a bit wet on chest x-ray as well as on exam. We will give her 40 of Lasix now and follow for response with additional dosing beyond her p.o. dosing as appears to be clinically warranted. She has severe to critical aortic stenosis, which certainly would be more than enough to explain her decompensation, probably even with very little provocation. 3. Weakness, appears to be predominantly due to above, but certainly also there may be just a simple element of deconditioning. She does have a degree of protein malnutrition. We will have PT and OT work with her and she may need a time at rehabilitation. 4. Mild protein malnutrition, we will hopefully be able to encourage good oral intake while she is here. 5. Mild hyponatremia. This probably fits with her congestive heart failure. 6. Atrial fibrillation with mild RVR. Her granddaughter noted she did not get all of her regular meds. Today we will give her digoxin now as well as treating the congestive heart failure and improving her hypoxia hopefully should help slow things down. Obviously can adjust the beta ernesto further if needed at this point in time. We will be giving the digoxin to allow room for blood pressure for Lasix. She is anticoagulated with Eliquis. 7. Severe aortoiliac and abdominal vascular disease. It appears to be asymptomatic at this time and her lactate is not elevated. Continue to follow. 8. Hypothyroid. Continue her Synthroid. 9. Anemia, chronic actually right now, she has got normal hemoglobin. 10. Chronic kidney disease, probably stage IV, appears to be around or actually better than her baseline creatinine right now. 11. Intraductal papillary mucinous neoplasm. We will need to discuss with the patient and family further in terms of what workup they may want for this, particularly given her high likelihood of serious morbidity or mortality with any surgical approach. 12. Deep venous thrombosis prophylaxis, Laura as is for her atrial fibrillation. 13. I did not feel comfortable addressing code status with the patient alone, given her degree of confusion and again I am waiting to hear back from her granddaughter, as I certainly believe the patient has probably expressed her wishes, but I would definitely like to confirm it either with her when her mentation is more towards baseline or with her granddaughter. MELANY
[2016-11-06] VITALS (9 sets, daily range): BP systolic 103–145; BP diastolic 58–101; PULSE 76–113; TEMP 36.5–38.6; O2SAT 93–97
[2016-11-06] MEDS: LEVOTHYROXINE 75 MCG TAB PO SCH (05:59)
[2016-11-06 06:04] LABS: BASO % 0.1 %; BASO ABS # 0.01 K/uL (0-0.2); COMPLETE YES; HEMATOCRIT 43.3 % (37-47); IG% 0.4 %; LYMPH % 6.6 %; LYMPH ABS # 0.54 K/uL (1.2-3.4); MEAN CELL VOLUME 92.9 fL (80-100); MEAN CORPUSCULAR HEMOGLOBIN 29.2 pg (25-34); MEAN CORPUSCULAR HGB CONC 31.4 g/dl (32-36); MEAN PLATELET VOLUME 10.5 fL (7.4-10.4); MONO % 8.2 %; NEUT % 84.7 %; PLATELET COUNT 158 K/uL (130-400); RED BLOOD COUNT 4.66 M/uL (4.2-5.4); WHITE BLOOD COUNT 8.13 K/uL (4.8-10.8)
[2016-11-06 06:50] LABS: BUN/CREATININE RATIO 12.5 (10-20); CALCIUM 8.8 mg/dl (8.5-10.1); CREATININE 1.3 mg/dl (0.60-1.20); POTASSIUM 3.6 mmol/L (3.5-5.1)
[2016-11-06] MEDS: POTASSIUM CHLORIDE 20 MEQ TABCR PO SCH (08:40)
[2016-11-06] MEDS: FUROSEMIDE 80 MG TAB PO SCH (08:40)
[2016-11-06] MEDS: CEFTRIAXONE SOD INJ 1 GM in DEXTROSE 5% ADD-VANTAGE 50ML 50 ML IV SCH (08:40)
[2016-11-06] MEDS: METOPROLOL SUCC 50MG EXT REL TAB PO SCH (08:40)
[2016-11-06] MEDS: APIXABAN 2.5 MG TAB PO SCH ×2 (08:41→20:33)
[2016-11-06] MEDS: BUDESONIDE EC 3 MG CAP PO SCH (08:41)
[2016-11-06] MEDS: PANTOprazole SOD 40 MG TAB PO SCH (08:41)
[2016-11-06] MEDS: ESCITALOPRAM OXALATE 10 MG TAB PO SCH (08:41)
[2016-11-06] MEDS: CALCIUM 600MG + VIT D 400 IU TAB PO SCH (08:41)
--- NOTE | 2016-11-06 08:53 | Clinical Documentation Query ---
DANG Man : CLINICAL DOCUMENTATION QUERY Patient is an 86 year old female admitted for evaluation and treatment of weakness and acute on chronic diastolic CHF. Documentation includes mild protein malnutrition. Per EMR historical documentation, patient has lost 10.5 Kg since 03/16/16 which represents > 20% loss of initial body weight over this interval. In your clinical opinion is this patient being managed for: ( ) Severe protein-calorie malnutrition, cachexia, as evidenced by >20% loss of body weight in 8 months and BMI 16.0 Kg/m*m ( ) Other explanation of clinical findings (Please Explain) ( ) Unable to determine (Please Define) ( ) Need to Discuss ( ) Not Agree The medical record reflects the following clinical findings, treatment, and risk factors. Clinical Indicators: Fall, weakness, poor intake, > 20 % weight loss over 8 month interval, BMI Treatment: Project Financial Analyst consult by arnp assessment. Risk Factors: Age, chronic diarrhea, chronic diastolic CHF ASPEN Criteria: Malnutrition in Chronic Illness Severe Malnutrition defined by 2 of the following 6 criteria: Severe Malnutrition ENERGY INTAKE <75% of estimated energy requirement for > 1month <75% of estimated energy requirement for > 1 month WEIGHT LOSS 5%/1 month 7.5%/3 months 10%/6months 20%/1year >5%/1 month >7.5%/3 months >10%/6months >20%/1year BODY FAT *loss of SQ fat from the orbits, triceps, or fat overlying the ribs MILD SEVERE MUSCLE MASS *muscle wasting at the temples, clavicles, shoulders, interosseous spaces, scapula, thigh, calf MILD SEVERE FLUID ACCUMULATION *localized or generalized edema of the extremities, vulva, scrotum weight loss may be masked by edema MILD SEVERE MOLD MAKER PLASTER STRENGTH N/A measurably decreased per the device's standards Please clarify and document your clinical opinion in the progress notes and discharge summary. Terms such as "probable", "suspected", "likely", "questionable", "possible", or "still to be ruled out" are acceptable. IF IN AGREEMENT, YOU MUST DOCUMENT ABOVE DIAGNOSTIC STATEMENT IN DAILY PROGRESS NOTES AND DISCHARGE SUMMARY. This document is not part of the patient's record. Thank You, Kristian York, REJI [phone]
[2016-11-06] MEDS ORDERED: AZITHROMYCIN IV 500 MG in DEXTROSE 5% 250ML 250 ML IV ONE (09:00)
[2016-11-06 10:49] LABS: INFLUENZA A PCR Neg for Influ A (NEG); INFLUENZA B PCR Neg for Influ B (NEG)
--- NOTE | 2016-11-06 20:16 | Progress Note ---
Subjective Date of Service: Nov 06, 2016. Subjective Pt evaluation today including: conversation w/ patient, conversation w/ family (son, grand-daughter at bedside), physical exam, chart review, lab review, review of studies (CT head, CT abd/pelvis, cxr), review of inpatient medication list Pain: mild right-sided rib pain with deep breath PO Intake: very poor Voiding: incontinence tele with a. fib patient fatigued, poor appetite, mild cough family has noted intermittent confusion they confirm she was very weak about 1 week prior to admission prior to this illness she had a good summer; working in her yard, doing light gardening, etc. chronically - NO dizziness/presyncope, NO chest pain, NO dyspnea Problem List Medical Problems: (1) Abdom Aortic Aneurysm Status: Chronic (2) Ambulatory dysfunction Status: Acute (3) Aortic stenosis Status: Chronic (4) Atrial fibrillation Status: Acute (5) CHF (congestive heart failure) Status: Chronic (6) Concussion Status: Acute (7) Contusion of left hand Status: Acute (8) Forehead contusion Status: Acute (9) Generalized weakness Status: Acute (10) Heart valve defect Status: Chronic (11) History of aortic stenosis Status: Chronic (12) Hypertension Nos Status: Chronic (13) Hypothyroidism Nos Status: Chronic (14) Personal History Of Colonic Polyps Status: Chronic (15) Rapid atrial fibrillation Status: Acute (16) Rib contusion Status: Acute Review of Systems Constitutional: + fever, + chills (cold) Respiratory: + cough, No sputum, No dyspnea at rest Cardiac: + see HPI, + chest pain, No orthopnea Abdomen: No pain Objective Vital Signs Date Time Temp Pulse Resp B/P (MAP) Pulse Ox O2 Delivery O2 Flow Rate FiO2 11/06/16 16:00 94 Nasal Cannula 2.0 11/06/16 15:39 37.1 107 16 115/86 (96) 94 Nasal Cannula 1.0 11/06/16 14:50 105 96 11/06/16 12:12 36.8 76 18 119/67 (84) 94 11/06/16 12:00 Nasal Cannula 2.0 11/06/16 08:20 36.9 82 18 121/69 (86) 93 11/06/16 08:00 Nasal Cannula 2.0 11/06/16 04:00 36.5 82 18 120/82 (95) 97 Nasal Cannula 2.0 11/06/16 04:00 Nasal Cannula 2.0 11/06/16 01:41 37.3 11/06/16 00:00 38.6 101 20 145/101 (116) 96 Nasal Cannula 2.0 11/05/16 23:59 Nasal Cannula 2.0 11/05/16 20:26 36.9 119 18 155/129 98 Nasal Cannula 2.0 Physical Exam General Appearance: no apparent distress, + thin ENT: pharynx normal (MMM) Neck: no JVD Respiratory/Chest: no respiratory distress, no accessory muscle use, + crackles (mild, right mid lung), + rales (mild, left base), + pertinent finding (no reproducible chest wall pain on right or left) Cardiovascular: no gallop, + systolic murmur (3/6 holosystolic murmur RUSB; s2 unable to be heard), + irregularly irregular Abdomen: normal bowel sounds, non tender, soft, no organomegaly Extremities: no pedal edema Neurologic/Psychiatric: alert, oriented x 3 (but attention was poor) Skin: + pertinent finding (resolving bruise, right flank posterior back) Laboratory Results Last 24 Hours Test 11/06/16 00:00 11/06/16 05:42 Influenza Type A (RT-PCR) Neg for Influ A Influenza Type B (RT-PCR) Neg for Influ B White Blood Count 8.13 K/uL Red Blood Count 4.66 M/uL Hemoglobin 13.6 g/dL Hematocrit 43.3 % Mean Corpuscular Volume 92.9 fL Mean Corpuscular Hemoglobin 29.2 pg Mean Corpuscular Hemoglobin Concent 31.4 g/dl Platelet Count 158 K/uL Mean Platelet Volume 10.5 fL Neutrophils (%) (Auto) 84.7 % Lymphocytes (%) (Auto) 6.6 % Monocytes (%) (Auto) 8.2 % Eosinophils (%) (Auto) 0.0 % Basophils (%) (Auto) 0.1 % Neutrophils # (Auto) 6.88 K/uL Lymphocytes # (Auto) 0.54 K/uL Monocytes # (Auto) 0.67 K/uL Eosinophils # (Auto) 0.00 K/uL Basophils # (Auto) 0.01 K/uL RDW Standard Deviation 49.4 fL RDW Coefficient of Variation 14.5 % Immature Granulocyte % (Auto) 0.4 % Immature Granulocyte # (Auto) 0.03 K/uL Sodium Level 135 mmol/L Potassium Level 3.6 mmol/L Chloride Level 97 mmol/L Carbon Dioxide Level 30 mmol/L Anion Gap 8.0 mmol/L Blood Urea Nitrogen 16 mg/dl Creatinine 1.30 mg/dl Est Creatinine Clear Calc Drug Dose 21.7 ml/min Estimated GFR () 43.3 Estimated GFR (Non- 37.4 BUN/Creatinine Ratio 12.5 Random Glucose 95 mg/dl Calcium Level 8.8 mg/dl 25-Hydroxy Vitamin D Total 20.1 ng/ml Thyroid Stimulating Hormone (TSH) 1.170 uIu/ml Assessment and Plan 86yo female: 1. sepsis 2nd to community-acquired pneumonia - blood cx's sent this AM, started on rocephin/zithromax for pneumonia. Check rapid PCR flu as well to be complete. 2. acute hypoxic resp failure 2nd to pneumonia - O2, supportive care; no evidence of complicating acute/chronic CHF. 3. severe/critical - amazingly she has had no symptoms prior to this hospitalization per family report. 4. chronic systolic CHF - compensated at this time. 5. a. fib - rates acceptable, continue eliquis. 6. CKD stage 4 - creatinine at baseline. 7. metabolic encephalopathy - 2nd to #1 - reassurance given to family; supportive care. Avoid sedating drugs, benzos, etc 8. protein calorie malnutrition, at least moderate - boost BID w/ meals, MVI. 9. deconditioning - PT, OT 10. hypothyroidism - compensated; cont synthroid 11. ? of crohn's disease - continue entocort. If she overall fails to improve clinically consider stress dose steroids as she has been on entocort, per records, for many years. 12. AAA - no symptoms, no Rx. 13. PAD - mesenteric stenosis - no symptoms. 14. code status - need to address with patient/family. Continued [facility] stay due to: inadequate po fluid intake, multiple IV medications needed Discharge planning: uncertain
[2016-11-07] VITALS (8 sets, daily range): BP systolic 101–110; BP diastolic 63–82; PULSE 86–100; TEMP 36.4–37.4; O2SAT 93–95
[2016-11-07] MEDS: LEVOTHYROXINE 75 MCG TAB PO SCH (05:42)
[2016-11-07 07:19] LABS: BUN/CREATININE RATIO 18.8 (10-20); CALCIUM 8.5 mg/dl (8.5-10.1); CREATININE 1.2 mg/dl (0.60-1.20); MAGNESIUM 2.3 mg/dl (1.8-2.4); POTASSIUM 3.7 mmol/L (3.5-5.1)
[2016-11-07] MEDS: PANTOprazole SOD 40 MG TAB PO SCH (08:23)
[2016-11-07] MEDS: BOOST VANILLA PO SCH ×4 (08:23→16:38)
[2016-11-07] MEDS: CEFTRIAXONE SOD INJ 1 GM in DEXTROSE 5% ADD-VANTAGE 50ML 50 ML IV SCH (08:23)
[2016-11-07] MEDS: ESCITALOPRAM OXALATE 10 MG TAB PO SCH (08:26)
[2016-11-07] MEDS: METOPROLOL SUCC 50MG EXT REL TAB PO SCH (08:26)
[2016-11-07] MEDS: CEROVITE ADV FORMULA TAB PO SCH (08:26)
[2016-11-07] MEDS: BUDESONIDE EC 3 MG CAP PO SCH (08:27)
[2016-11-07] MEDS: FUROSEMIDE 80 MG TAB PO SCH (08:27)
[2016-11-07] MEDS: APIXABAN 2.5 MG TAB PO SCH ×2 (08:27→20:40)
[2016-11-07] MEDS: CALCIUM 600MG + VIT D 400 IU TAB PO SCH (08:27)
[2016-11-07] MEDS: POTASSIUM CHLORIDE 20 MEQ TABCR PO SCH (08:27)
--- NOTE | 2016-11-07 09:00 | DIAGNOSTIC IMAGING REPORT ---
CHEST 2 VIEWS ROUTINE HISTORY: 86 years-old Female eval for worsening edema, pneumonia acute shortness of breath. COMPARISON: Portable chest radiograph 11/05/2016 TECHNIQUE: Frontal and lateral views of the chest FINDINGS: Cardiac silhouette is again moderately enlarged. There is tortuosity and atherosclerosis of the aorta. There is no pneumothorax. There is slightly improved aeration of the left midlung. There is persistent focal opacity of the right lateral midlung measuring up to 4.2 x 4.6 cm. This appears similar from comparison. Additionally, there has been interval development of a small right pleural effusion with hazy right basilar opacities. Vascular calcifications are seen within the upper abdomen. The bones are grossly intact. IMPRESSION: 1. Persistent focal opacity of the lateral right midlung with interval development of hazy right basilar opacities with small right pleural effusion suggesting pneumonia with parapneumonic effusion. Follow-up imaging to document resolution is recommended. 2. Slightly improved aeration of the lateral left midlung. The above report was generated using voice recognition software. It may contain grammatical, syntax or spelling errors. Electronically signed by: Urbano Oconnell M.D. 11/07/2016 8:58 AM Dictated Date/Time: 11/07/2016 8:56 AM
[2016-11-07] MEDS: AZITHROMYCIN IV 250 MG in DEXTROSE 5% 250ML 250 ML IV SCH (09:26)
[2016-11-07] MEDS ORDERED: DIGOXIN 0.125 MG TAB PO SCH (16:00)
--- NOTE | 2016-11-07 20:40 | Progress Note ---
Subjective Date of Service: Nov 07, 2016. Subjective Pt evaluation today including: conversation w/ patient, conversation w/ family (grand-daughter at bedside), physical exam, chart review, lab review, review of studies (cxr), review of inpatient medication list Pain: slight pleuritic discomfort right chest only PO Intake: improving Voiding: no voiding problems tele with stable a. fib overnight, rates > 100 about 1/3 of the time she feels better more energy confusion improved; confirmed by grand-daughter sitting in chair more today Problem List Medical Problems: (1) Abdom Aortic Aneurysm Status: Chronic (2) Ambulatory dysfunction Status: Acute (3) Aortic stenosis Status: Chronic (4) Atrial fibrillation Status: Acute (5) CHF (congestive heart failure) Status: Chronic (6) Concussion Status: Acute (7) Contusion of left hand Status: Acute (8) Forehead contusion Status: Acute (9) Generalized weakness Status: Acute (10) Heart valve defect Status: Chronic (11) History of aortic stenosis Status: Chronic (12) Hypertension Nos Status: Chronic (13) Hypothyroidism Nos Status: Chronic (14) Personal History Of Colonic Polyps Status: Chronic (15) Rapid atrial fibrillation Status: Acute (16) Rib contusion Status: Acute Review of Systems Constitutional: No fever, No chills, No sweats Respiratory: + cough, No dyspnea at rest Cardiac: No chest pain, No orthopnea Abdomen: No pain, No diarrhea Objective Vital Signs Date Time Temp Pulse Resp B/P (MAP) Pulse Ox O2 Delivery O2 Flow Rate FiO2 11/07/16 20:05 37.0 89 16 104/67 (79) 93 Room Air 11/07/16 16:34 98 11/07/16 16:00 95 Nasal Cannula 2.0 11/07/16 15:36 36.5 86 16 101/63 (76) 95 Room Air 11/07/16 12:00 Room Air 11/07/16 11:57 36.4 91 20 104/67 (79) 93 Room Air 11/07/16 08:00 Room Air 11/07/16 07:35 36.9 86 20 106/72 (83) 93 Room Air 11/07/16 04:13 37.0 100 18 110/82 (91) 95 Nasal Cannula 1.0 11/07/16 04:00 Nasal Cannula 1.0 11/07/16 02:10 37.4 11/06/16 23:59 Nasal Cannula 1.0 11/06/16 23:15 37.6 113 18 104/63 (77) 94 Nasal Cannula 1.0 Physical Exam General Appearance: no apparent distress, + pertinent finding (looks much better today) ENT: pharynx normal Neck: no JVD Respiratory/Chest: no respiratory distress, no accessory muscle use, + decreased breath sounds (right base), + crackles (both bases) Cardiovascular: no gallop, + systolic murmur (3/6 RUSB), + irregularly irregular Abdomen: normal bowel sounds, non tender, soft, no organomegaly Extremities: no pedal edema Neurologic/Psychiatric: alert, oriented x 3 Laboratory Results Last 24 Hours Test 11/07/16 06:01 Sodium Level 132 mmol/L Potassium Level 3.7 mmol/L Chloride Level 95 mmol/L Carbon Dioxide Level 32 mmol/L Anion Gap 5.0 mmol/L Blood Urea Nitrogen 23 mg/dl Creatinine 1.20 mg/dl Est Creatinine Clear Calc Drug Dose 23.5 ml/min Estimated GFR () 47.7 Estimated GFR (Non- 41.2 BUN/Creatinine Ratio 18.8 Random Glucose 95 mg/dl Calcium Level 8.5 mg/dl Magnesium Level 2.3 mg/dl Assessment and Plan 86yo female: 1. sepsis 2nd to community-acquired pneumonia - improved/resolving. Blood cx' s thus far negative. 2. acute hypoxic resp failure 2nd to RML/RLL community-acquired pneumonia - hypoxia resolved. Day #2 of rocephin/zithromax. Occasional dysphagia at home - speech consult for swallow eval. 3. severe/critical - amazingly she has had no symptoms prior to this hospitalization per family report. No signs of complicating acute CHF. 4. chronic systolic CHF - compensated at this time. 5. a. fib - rates acceptable, continue eliquis. 6. CKD stage 4 - creatinine at baseline. 7. metabolic encephalopathy - 2nd to #1 - resolving. 8. protein calorie malnutrition, at least moderate - boost BID w/ meals, MVI. 9. deconditioning - PT, OT 10. hypothyroidism - compensated; cont synthroid 11. ? of crohn's disease - continue entocort. If she overall fails to improve clinically consider stress dose steroids as she has been on entocort, per records, for many years. 12. AAA - no symptoms, no Rx. 13. PAD - mesenteric stenosis - no symptoms. 14. code status - DNR, as confirmed with patient/granddaughter. Family to bring in living will. 15. hyponatremia - repeat BMP in am. Likely due to lasix. if tele overnight is stable transfer to med/surg progressing Continued [facility] stay due to: inadequate po fluid intake, multiple IV medications needed Discharge planning: uncertain
[2016-11-08] VITALS (7 sets, daily range): BP systolic 106–132; BP diastolic 76–84; PULSE 77–98; TEMP 36.6–37; O2SAT 91–94
[2016-11-08] MEDS: LEVOTHYROXINE 75 MCG TAB PO SCH (06:04)
[2016-11-08 07:30] LABS: BUN/CREATININE RATIO 21.7 (10-20); CALCIUM 8.6 mg/dl (8.5-10.1); CREATININE 1.3 mg/dl (0.60-1.20); POTASSIUM 3.6 mmol/L (3.5-5.1)
[2016-11-08] MEDS: CEFTRIAXONE SOD INJ 1 GM in DEXTROSE 5% ADD-VANTAGE 50ML 50 ML IV SCH (07:44)
[2016-11-08] MEDS: FUROSEMIDE 80 MG TAB PO SCH (07:45)
[2016-11-08] MEDS: POTASSIUM CHLORIDE 20 MEQ TABCR PO SCH (07:45)
[2016-11-08] MEDS: APIXABAN 2.5 MG TAB PO SCH ×2 (07:45→21:04)
[2016-11-08] MEDS: ESCITALOPRAM OXALATE 10 MG TAB PO SCH (07:45)
[2016-11-08] MEDS: METOPROLOL SUCC 50MG EXT REL TAB PO SCH (07:46)
[2016-11-08] MEDS: CALCIUM 600MG + VIT D 400 IU TAB PO SCH (07:46)
[2016-11-08] MEDS: CEROVITE ADV FORMULA TAB PO SCH (07:46)
[2016-11-08] MEDS: PANTOprazole SOD 40 MG TAB PO SCH (07:46)
[2016-11-08] MEDS: BUDESONIDE EC 3 MG CAP PO SCH (07:47)
[2016-11-08] MEDS: BOOST VANILLA PO SCH ×4 (08:01→17:38)
[2016-11-08] MEDS: POLYETHYLENE (MIRALAX) 17 GM PACK PO SCH (09:10)
[2016-11-08] MEDS: AZITHROMYCIN IV 250 MG in DEXTROSE 5% 250ML 250 ML IV SCH (09:10)
[2016-11-08] MEDS: LACTOBACILLUS ACIDOPHILUS (FLORANEX) TAB PO SCH ×2 (12:35→17:38)
--- NOTE | 2016-11-08 20:47 | Progress Note ---
Subjective Date of Service: Nov 08, 2016. Subjective Pt evaluation today including: conversation w/ patient, conversation w/ family (grand-daughter by phone), physical exam, chart review, lab review, review of inpatient medication list Pain: denies cp, abd pain, or pain in any other location PO Intake: improved; ate decent breakfast tele overnight with rate-controlled a.fib she reports no complaints minimal cough asks "when can I go home?" nurses report no issues overnight Problem List Medical Problems: (1) Abdom Aortic Aneurysm Status: Chronic (2) Ambulatory dysfunction Status: Acute (3) Aortic stenosis Status: Chronic (4) Atrial fibrillation Status: Acute (5) CHF (congestive heart failure) Status: Chronic (6) Concussion Status: Acute (7) Contusion of left hand Status: Acute (8) Forehead contusion Status: Acute (9) Generalized weakness Status: Acute (10) Heart valve defect Status: Chronic (11) History of aortic stenosis Status: Chronic (12) Hypertension Nos Status: Chronic (13) Hypothyroidism Nos Status: Chronic (14) Personal History Of Colonic Polyps Status: Chronic (15) Rapid atrial fibrillation Status: Acute (16) Rib contusion Status: Acute Review of Systems Constitutional: No fever, No chills Respiratory: No dyspnea at rest, No hemoptysis Cardiac: No chest pain, No orthopnea Abdomen: + constipation, No pain, No diarrhea Objective Vital Signs Date Time Temp Pulse Resp B/P (MAP) Pulse Ox O2 Delivery O2 Flow Rate FiO2 11/08/16 16:20 Room Air 11/08/16 16:19 37.0 83 20 114/77 (89) 91 Room Air 11/08/16 12:37 37.0 84 16 111/80 (90) 93 Room Air 11/08/16 11:39 36.6 85 20 92 2.0 11/08/16 08:00 Room Air 11/08/16 07:29 36.6 85 20 132/78 (96) 92 Room Air 11/08/16 04:00 Nasal Cannula 2.0 11/08/16 04:00 36.6 98 20 128/76 (93) 94 Room Air 11/08/16 00:00 36.6 92 18 121/84 (96) 93 Nasal Cannula 11/08/16 00:00 Nasal Cannula 2.0 Physical Exam General Appearance: no apparent distress ENT: pharynx normal (MMM, no thrush) Neck: no JVD Respiratory/Chest: no respiratory distress, no accessory muscle use, + decreased breath sounds (right base), + rales (b/l bases - mild) Cardiovascular: no gallop, + systolic murmur (3/6 RUSB, s2 difficult to hear), + irregularly irregular Abdomen: normal bowel sounds, non tender, soft, no organomegaly Extremities: no pedal edema Neurologic/Psychiatric: alert, + pertinent finding (oriented to person, place, and knew it was Friday but difficulty with year) Laboratory Results Last 24 Hours Test 11/08/16 06:35 Sodium Level 136 mmol/L Potassium Level 3.6 mmol/L Chloride Level 98 mmol/L Carbon Dioxide Level 30 mmol/L Anion Gap 8.0 mmol/L Blood Urea Nitrogen 28 mg/dl Creatinine 1.30 mg/dl Est Creatinine Clear Calc Drug Dose 21.7 ml/min Estimated GFR () 43.3 Estimated GFR (Non- 37.4 BUN/Creatinine Ratio 21.7 Random Glucose 86 mg/dl Calcium Level 8.6 mg/dl Assessment and Plan 86yo female: 1. sepsis 2nd to community-acquired pneumonia - resolved, blood cx's negative. 2. acute hypoxic resp failure 2nd to RML/RLL community-acquired pneumonia - hypoxia resolved. Day #3 of rocephin/zithromax - d/c IV abx, change to levaquin 750mg q48h starting tomorrow to complete 10 days of abx in total. Occasional dysphagia at home - speech consult appreciated; swallow eval was largely normal. Aspiration pneumonia unlikely. 3. severe/critical - amazingly she has had no symptoms prior to this hospitalization per family report. No signs of complicating acute CHF during this stay either. 4. chronic systolic CHF - compensated. 5. a. fib - rates acceptable, continue eliquis. d/c telemetry today. 6. CKD stage 4 - creatinine at baseline. 7. metabolic encephalopathy - 2nd to #1 - resolving, much improved relative to admission. 8. protein calorie malnutrition, at least moderate - boost BID w/ meals, MVI. 9. deconditioning - PT, OT - will she need rehab prior to going home? 10. hypothyroidism - compensated; cont synthroid 11. ? of crohn's disease - continue entocort. 12. AAA - no symptoms, no Rx. 13. PAD - mesenteric stenosis - no symptoms. 14. hyponatremia - resolved. 15. DNR code status. transfer to med/surg updated grand-daughter, Anny today, with whom she lives told Anny that discharge hinges on PT/OT evals if PT/OT see her on Friday and clear her she can likely d/c then Continued [facility] stay due to: ambulation difficulties Discharge planning: uncertain (home with HH vs rehab)
[2016-11-09] VITALS: O2SAT 94
[2016-11-09] MEDS: LEVOTHYROXINE 75 MCG TAB PO SCH (06:01)
[2016-11-09 07:43] VITALS: BP 121/86; PULSE 73; TEMP 36.9; O2SAT 94
[2016-11-09] MEDS: BOOST VANILLA PO SCH ×2 (08:10)
[2016-11-09] MEDS: APIXABAN 2.5 MG TAB PO SCH (08:11)
[2016-11-09] MEDS: CALCIUM 600MG + VIT D 400 IU TAB PO SCH (08:11)
[2016-11-09] MEDS: LACTOBACILLUS ACIDOPHILUS (FLORANEX) TAB PO SCH (08:11)
[2016-11-09] MEDS: BUDESONIDE EC 3 MG CAP PO SCH (08:12)
[2016-11-09] MEDS: POTASSIUM CHLORIDE 20 MEQ TABCR PO SCH (08:12)
[2016-11-09] MEDS: ESCITALOPRAM OXALATE 10 MG TAB PO SCH (08:13)
[2016-11-09] MEDS: FUROSEMIDE 80 MG TAB PO SCH (08:13)
[2016-11-09] MEDS: METOPROLOL SUCC 50MG EXT REL TAB PO SCH (08:14)
[2016-11-09] MEDS: CEROVITE ADV FORMULA TAB PO SCH (08:14)
[2016-11-09] MEDS: PANTOprazole SOD 40 MG TAB PO SCH (08:14)
[2016-11-09] MEDS: POLYETHYLENE (MIRALAX) 17 GM PACK PO SCH (08:18)
[2016-11-09 10:13] VITALS: BP 121/86; PULSE 73; TEMP 36.9; O2SAT 94
[2016-11-09] MEDS ORDERED: ELQ25 PO (10:45)
[2016-11-09] MEDS ORDERED: LVQ750 PO (10:45)
--- NOTE | 2016-11-09 10:55 | Discharge Instructions ---
Discharge Instructions Date of Service Nov 09, 2016. Admission Reason for Admission: 1. Generalized weakness. 2. Pneumonia. 3. Acute on chronic Systolic and Diastolic CHF. Discharge Discharge Diagnosis / Problem: Generalized weakness. Pneumonia. Acute on chronic combined CHF. Discharge Goals Goal(s): Improve function, Increase independence, Improve disease control, Therapeutic intervention Activity Recommendations Activity Limitations: resume your previous activity Lifting Limitations: gradually increase as tolerated Exercise/Sports Limitations: gradually increase as tolerated May Resume Sexual Activity: when tolerated Shower/Bathe: no limitations Driving or Machine Use: no limitations 1. Progress activities as tolerated. 2. Use walker as instructed. . Instructions / Follow-Up Instructions / Follow-Up 1. Maintain a low sodium diet (less than 200 mg of sodium / day. 2. Finish Levofloxacin course. 3. Call Tyler Zimmerman PA-C's office and schedule for hospital follow up within the next week. Current Hospital Diet Patient's current hospital diet: Low Sodium Diet (2gm Na) Discharge Diet Recommended Diet: Low Sodium Diet (2gm Na) Fluid Restriction: None Pending Studies Studies pending at discharge: no Laboratory Results Test 11/05/16 13:50 11/05/16 17:12 11/05/16 19:30 11/06/16 00:00 White Blood Count 9.09 Red Blood Count 4.22 Hemoglobin 12.8 Hematocrit 39.1 Mean Corpuscular Volume 92.7 Mean Corpuscular Hemoglobin 30.3 Mean Corpuscular Hemoglobin Concent 32.7 Platelet Count 173 Mean Platelet Volume 10.2 Neutrophils (%) (Auto) 85.5 Lymphocytes (%) (Auto) 9.4 Monocytes (%) (Auto) 4.7 Eosinophils (%) (Auto) 0.2 Basophils (%) (Auto) 0.1 Neutrophils # (Auto) 7.77 Lymphocytes # (Auto) 0.85 Monocytes # (Auto) 0.43 Eosinophils # (Auto) 0.02 Basophils # (Auto) 0.01 RDW Standard Deviation 49.8 RDW Coefficient of Variation 14.6 Immature Granulocyte % (Auto) 0.1 Immature Granulocyte # (Auto) 0.01 Total Bilirubin 1.5 Aspartate Amino Transferase (AST) 14 Alanine Aminotransferase (ALT) 14 Alkaline Phosphatase 81 Troponin I 0.024 C-Reactive Protein 9.03 Pro-B-Type Natriuretic Peptide 57437 Total Protein 7.2 Albumin 3.0 Globulin 4.2 Albumin/Globulin Ratio 0.7 Procalcitonin 0.21 Digoxin Level 0.7 POC Lactic Acid Venous 0.78 Urine Color YELLOW Urine Appearance CLEAR Urine pH 7.5 Urine Specific [place] 1.021 Urine Protein NEG Urine Glucose (UA) NEG Urine Ketones NEG Urine Occult Blood 1+ Urine Nitrite NEG Urine Bilirubin NEG Urine Urobilinogen NEG Urine Leukocyte Esterase NEG Urine WBC (Auto) 1-5 Urine RBC (Auto) 0-4 Urine Hyaline Casts (Auto) 0 Urine Epithelial Cells (Auto) 5-10 Urine Bacteria (Auto) NEG Influenza Type A (RT-PCR) Neg for Influ A Influenza Type B (RT-PCR) Neg for Influ B Test 11/06/16 05:42 11/07/16 06:01 11/08/16 06:35 White Blood Count 8.13 Red Blood Count 4.66 Hemoglobin 13.6 Hematocrit 43.3 Mean Corpuscular Volume 92.9 Mean Corpuscular Hemoglobin 29.2 Mean Corpuscular Hemoglobin Concent 31.4 Platelet Count 158 Mean Platelet Volume 10.5 Neutrophils (%) (Auto) 84.7 Lymphocytes (%) (Auto) 6.6 Monocytes (%) (Auto) 8.2 Eosinophils (%) (Auto) 0.0 Basophils (%) (Auto) 0.1 Neutrophils # (Auto) 6.88 Lymphocytes # (Auto) 0.54 Monocytes # (Auto) 0.67 Eosinophils # (Auto) 0.00 Basophils # (Auto) 0.01 RDW Standard Deviation 49.4 RDW Coefficient of Variation 14.5 Immature Granulocyte % (Auto) 0.4 Immature Granulocyte # (Auto) 0.03 25-Hydroxy Vitamin D Total 20.1 Thyroid Stimulating Hormone (TSH) 1.170 Sodium Level 132 136 Potassium Level 3.7 3.6 Chloride Level 95 98 Carbon Dioxide Level 32 30 Anion Gap 5.0 8.0 Blood Urea Nitrogen 23 28 Creatinine 1.20 1.30 Est Creatinine Clear Calc Drug Dose 23.5 21.7 Estimated GFR () 47.7 43.3 Estimated GFR (Non- 41.2 37.4 BUN/Creatinine Ratio 18.8 21.7 Random Glucose 95 86 Calcium Level 8.5 8.6 Magnesium Level 2.3 Work Instructions Lifting Limitations: none Medical Emergencies . Who to Call and When: Medical Emergencies: If at any time you feel your situation is an emergency, please call 911 immediately. . Non-Emergent Contact Non-Emergency issues call your: Primary Care Provider Call Non-Emergent contact if: you have a fever, you have any medication questions . Past History Medical & Surgical History: (1) Generalized weakness (2) Pneumonia (3) CHF (congestive heart failure) (4) Anticoagulant long-term use (5) Atrial fibrillation . "Provider Documentation" section prepared by Prasanna Alexander. . VTE Core Measure Inpt VTE Proph given/why not?: Other Anticoagulation
[2016-11-09] MEDS ORDERED: LEVOFLOXACIN 750 MG TAB PO SCH (11:00)
--- NOTE | 2016-11-09 21:25 | DISCHARGE SUMMARY ---
ADMITTING DIAGNOSES: 1. Generalized weakness. 2. Right middle lobe and right lower lobe community acquired pneumonia, possible sepsis. 3. Acute on chronic systolic congestive heart failure. SECONDARY DIAGNOSES: 1. Abdominal aortic aneurysm. 2. Severe/critical aortic stenosis. 3. Hypertension. 4. Hypothyroidism. 5. Atrial fibrillation, with intermittent rapid ventricular response. 6. History of ambulatory dysfunction, greatly improved. HOSPITAL COURSE: Mrs. Graham is a very pleasant 86-year-old white female who was admitted acutely on 11/05/2016, complaining of generalized weakness, possibly a little confusion, fatigue, and a recent fall. She was noted on admission to be in AFib with a mildly elevated ventricular response rate, and her proBNP was elevated at 16,336 pg/mL. She was also notably hyponatremic. Chest x-ray confirmed the presence of a right lateral mid lung infiltrate, consistent with a pneumonia. The patient was treated with empiric antibiotics including levofloxacin and ceftriaxone. She was also treated with Lasix. Her laboratories remained relatively stable, hyponatremia was corrected, and she quickly got stronger day after day. She was evaluated by physical therapy and occupational therapy who suggested a temporary stay at [facility], but patient refused. She currently lives with her granddaughter and has been ambulating in the hospital without a walker and without assistance and feeling well with it. Therefore patient will be sent home today and will follow up with her primary care physician in the near future. PHYSICAL EXAMINATION: VITAL SIGNS: Pulse 73 and slightly irregular, temperature 36.9 degrees Celsius, respiratory rate 16 and unlabored, blood pressure is 121/86, SpO2 is 94% on room air. GENERAL: The patient is in no acute distress. She is lying comfortably in bed. HEENT: Head is atraumatic, normocephalic. EOMs intact. Sclera anicteric. Facies symmetric. No perioral cyanosis. Mucous membranes moist. NECK: Without thyromegaly, adenopathy or JVD. CHEST AND LUNGS: With mildly diminished breath sounds in the right base, otherwise rare right mid lung with expiratory crackles noted. No wheezes, no accessory muscle use. CARDIOVASCULAR SYSTEM: S1 and S2 are irregularly irregular with a grade 3/6 systolic murmur, best over right 2nd intercostal space, radiates to suprasternal notch and to left sternal border. Aortic valve closure sound is diminished but audible. No diastolic murmurs appreciated. No gallops or rubs. ABDOMINAL EXAMINATION: Bowel sounds present. No masses, organomegaly, or tenderness. EXTREMITIES: Without clubbing, cyanosis or edema. NEUROLOGIC EXAMINATION: The patient is awake, alert and oriented. Pleasant and cooperative. Answers questions appropriately. Speech is clear. Normal movement of all 4 extremities. LABORATORY DATA: Sodium 136 mmol/L, potassium 3.6 mmol/L, BUN 28 mg/dL, creatinine 1.30 mg/dL, random glucose 86 mg/dL. Influenza A and B PCR are negative. DISCHARGE MEDICATIONS: 1. Eliquis 2.5 mg b.i.d. 2. Levofloxacin 750 mg every other day for 6 days. 3. Budesonide 3 mg take 3 tablets daily in the morning. 4. Os-Daron 500 mg 1 tablet daily. 5. Digoxin 0.125 mg every other day. 6. Lexapro 5 mg daily. 7. Lasix 40 mg take 2 tablets daily, may increase to 120 mg as needed for weight gain or fluid retention. 8. Levothyroxine 75 mcg daily. 9. Toprol-XL 100 mg a day. 10. Omeprazole 20 mg daily. 11. KCl 20 mEq daily. ALLERGIES: 1. CODEINE. 2. SULFA MEDICATIONS. CONSULATIONS: None. DISCHARGE INSTRUCTIONS: 1. As per patient visit report and discharge instructions. 2. The patient was advised to contact her PCP and follow up within the next week to follow up pneumonia. Attending Attestation: I agree with the chaparor components of this discharge summary by FLORES Alexander. Additional discharge diagnoses: 1. acute hypoxic respiratory failure - resolved 2. CKD stage 4 3. moderate protein calorie malnutrition 4. metabolic encephalopathy - resolved Danis Flor MD [facility]ITALVanessa
== END 2016-11-09 11:45 | disposition home or self-care (01) | DRG 871 ==
LOC: C.EDB 13:04 → C.2E 19:18 → ENRESERV 19:27 → C.MS2W 11-08 10:38
PROVIDERS: ADMIT Family Medicine; ATTEND Internal Medicine
DX: A41.9 Sepsis, unspecified organism (principal); I50.43 Acute on chronic combined systolic (congestive) and diastolic (congestive) heart failure; J18.9 Pneumonia, unspecified organism; J96.01 Acute respiratory failure with hypoxia; G93.41 Metabolic encephalopathy; I13.0 Hypertensive heart and chronic kidney disease with heart failure and stage 1 through stage 4 chronic kidney disease, or unspecified chronic kidney disease; E44.1 Mild protein-calorie malnutrition; E87.1 Hypo-osmolality and hyponatremia; N18.4 Chronic kidney disease, stage 4 (severe); K50.90 Crohn's disease, unspecified, without complications; I71.4 Abdominal aortic aneurysm, without rupture; R50.9 Fever, unspecified; D64.9 Anemia, unspecified; F41.9 Anxiety disorder, unspecified; E78.5 Hyperlipidemia, unspecified; E03.9 Hypothyroidism, unspecified; Z79.01 Long term (current) use of anticoagulants; Z80.2 Family history of malignant neoplasm of other respiratory and intrathoracic organs; I35.0 Nonrheumatic aortic (valve) stenosis; I48.91 Unspecified atrial fibrillation; I73.9 Peripheral vascular disease, unspecified; Z66 Do not resuscitate; R13.10 Dysphagia, unspecified; T50.1X5A Adverse effect of loop [high-ceiling] diuretics, initial encounter; Z82.49 Family history of ischemic heart disease and other diseases of the circulatory system

== ENCOUNTER → 2016-11-26 | Outpatient (CLI) | payer OTHER ==
[~2016-11-26] MED LIST changes: +ELQ25 PO; -FERR1TAB61 PO; -HYDR-5688 PO; +LEVO75TA5 PO; -LEVO88TA3 PO; +LNX125 PO; +LVQ750 PO; +METO1TAB69 PO; -METO50TA7 PO; +OMEP20CA9 PO; -ONDA4TAB46 PO; +OPTIRAY 320 IV PRN; -POTA-327 PO; +POTA10CA28 PO
--- NOTE | 2016-11-26 12:04 | DIAGNOSTIC IMAGING REPORT ---
(CHEST) THORAX WITH CT DOSE: 160.88 mGycm HISTORY: Cough R05 Chronic cough TECHNIQUE: Multiaxial CT images of the chest were performed following the intravenous administration of contrast. A dose lowering technique was utilized adhering to the principles of ALARA. COMPARISON: Chest series dated 11/05/2016. CT chest dated 07/24/2016 FINDINGS: Considerable atherosclerotic change thoracic aorta. Maximum diameter of the descending thoracic aorta is 4 cm unchanged from the prior exam. Pulmonary vasculature enhances appropriately. No significant mediastinal or hilar adenopathy. As compared to the CT study of 07/24/2016, interval development of a right upper lobe infiltrate with associated micronodular area. Minimal nodularity right middle lobe. Right lower lung is clear. Very small right effusion diminished in volume from the prior study. Very small left effusion also improved. Mild nonspecific left hemithoracic nodularity similar as compared to the prior study. Peripheral parenchymal infiltrative change on the prior exam appears somewhat improved. Aneurysmal dilatation of the proximal abdominal aorta with intraluminal thrombus formation. Maximum diameter of 3.5 cm unchanged in the prior study. IMPRESSION: 1. Mixed findings compared to the prior study. 2. Diffuse right upper lobe infiltrate with associated micronodularity. 3. Improving left basilar infiltrate. 4. Improving bilateral pleural effusions. 5. Stable atherosclerotic change and aneurysmal dilatation of the thoracic and abdominal aorta. 6. Continued close CT follow-up is suggested The above report was generated using voice recognition software. It may contain grammatical, syntax or spelling errors. Electronically signed by: Tacos Denton M.D. 11/26/2016 12:03 PM Dictated Date/Time: 11/26/2016 11:56 AM
== END | disposition home or self-care (01) ==
LOC: C.CTS 11:36
PROVIDERS: ATTEND Physician Assistant
DX: R05 Cough (principal)